=== PATIENT | male | born 1995 | race Caucasian/White ===

== ENCOUNTER 2023-07-26 10:05 | Emergency (ER) | payer OTHER ==
[~2023-07-26] VITALS: Ht 170.2 cm; Wt 70.5 kg
[2023-07-26 10:10] VITALS: TEMP 98.2
[2023-07-26 12:28] VITALS: BP 119/69; PULSE 79; RESP 20
== END 2023-07-26 12:31 | disposition still patient (30) ==
LOC: EMS 10:05
DX: F11.20 Opioid dependence, uncomplicated (principal); F17.210 Nicotine dependence, cigarettes, uncomplicated
CPT/HCPCS: 99281; Z7502

== ENCOUNTER 2023-08-26 09:07 | Emergency (ER) | payer OTHER ==
[~2023-08-26] VITALS: Ht 172.7 cm; Wt 68.2 kg
[2023-08-26 09:10] VITALS: TEMP 97.8
[2023-08-26] MEDS ORDERED: CLOB15CR10 TP (11:18)
[2023-08-26] MEDS ORDERED: DIPH50CA37 PO (11:18)
[2023-08-26 11:30] VITALS: BP 120/84; PULSE 85; RESP 12
== END 2023-08-26 11:51 | disposition home or self-care (01) ==
LOC: EMS 09:09
DX: T78.40XA Allergy, unspecified, initial encounter (principal); F17.210 Nicotine dependence, cigarettes, uncomplicated; X58.XXXA Exposure to other specified factors, initial encounter
CPT/HCPCS: 99283